=== PATIENT | female | born 1990 | race Caucasian/White ===

== ENCOUNTER 2023-01-08 14:51 | Outpatient (AMB) | payer OTHER, SELFPAY ==
--- NOTE | 2023-01-08 14:53 | A.OFFVIS_ITS ---
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 States she has noticed lumps/hand curling inward towards her palm in the last year in a half. States its both of the ring fingers are going numb. She states that her numbness is all the time, her left RF is worse the right RF. 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 She also appreciate some numbness in the fingers, and is seen today with a male internet application developer She says she had some cuts and open sores on her ring fingers, which she says was due to her picking at them . She said that her skin was ?turning black? and that she cleaned her wound with iodine, Hydrea peroxide, and applied antibiotic ointment and Band-Aids. She denied any prior medical treatment for her wounds and she just ?looked stuff up online?. After talking with her it sounds like these wounds took at least a couple of months to [place] were healed by about [place] of 2022 [facility] Social History (Updated 01/08/23 @ 14:59 by Ainsley Woods) Current occupational status: unemployed Current occupation: right hand dominant Review of Systems Const All systems reviewed & are unremarkable except as noted in HPI and below Physical Exam Const General: cooperative, healthy appearing and no acute distress Orientation/consciousness: patient oriented x3 HEENT Head: Yes normocephalic and Yes atraumatic Eyes EOM: EOMs intact bilaterally Resp Effort & Inspection: normal respiratory effort and able to speak in complete sentences Cardio Jugular venous distension: no JVD Skin General skin exam: turgor normal Rashes: no rashes Neuro General: patient oriented x3 Extrem Other: Evaluation of Bilateral Upper Extremity: The patient is alert, oriented, and in no acute distress She is somewhat slow and deliberate in her speech and needed to be given time to talk Neuro: Decreased sensation in the radial digital nerve of the left ring finger. Decreased sensation in the ulnar digital nerve distribution of the right ring finger. This corresponds with the healed scars directly over the this aspect of the PIP flexion crease for each of these digits. Normal sensation to all other digital nerve distributions in the fingers of both hands. Vascular: Cap refill brisk ROM: She can bring all of her fingers in both hands closed to a fist. Good active extension of the thumb, index, middle, and small fingers bilaterally She has flexion contractures of the ring finger PIP joints Measuring ~20 degrees of the right ring finger Measuring ~45 degrees of the left ring finger I cannot reduce the left ring finger flexion contracture I was able to reduce her right ring finger to ~10 degrees She has some hypertrophic scar tissue in the ulnar aspect of PIP flexion crease of right ring finger. This is the aspect of her finger with reduced sensation She has some hypertrophic scar tissue in the radial aspect of PIP flexion crease of left ring finger. This is the aspect of her finger with reduced sensation These wounds were caused by her picking at her fingers, and reportedly took about 2 months to heal General: No Ecchymosis. No Erythema or evidence of infection. Psych Appearance: grossly normal Affect: normal affect Attitude: cooperative Assessment & Plan Assessment & Plan (1) Flexion contracture of joint of right hand: Comment: Ring finger PIP joint Code(s): M24.541 - Contracture, right hand (2) Flexion contracture of joint of left hand: Comment: Ring finger PIP joint Code(s): M24.542 - Contracture, left hand Plan Assessment & Plan: 1. 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 I educated her about this condition I discussed treatment options I recommend daily stretching exercises and OT hand therapy I ordered OT hand therapy to work on ROM exercises and normalizing hand function She will work on ROM exercises at home, 20X daily. She will focus on using a table or flat surface to extend her fingers She is to do her best to avoid picking at her skin to prevent any new wounds to her fingers She will follow up in a few months for a ROM check 2. Bilateral ring finger numbness Decreased sensation in the left ring finger radial digital nerve , and in the right ring finger ulnar digital nerve distribution. This is likely related to her ring finger wounds, and will be managed conservatively Scribed for Yecenia Rojas MD by Romeo Mena, medical data analyst, on 01/08/23 at 3:50 PM, EST. Orders: Orders OT Evaluation and Treatment Today M24.549 - Contracture, unspecified hand Coding Level of Care Code New Pt Level 4 (55528) Diagnoses Flexion contracture of joint of right hand M24.541 Flexion contracture of joint of left hand M24.542
== END 2023-01-08 15:42 | disposition home or self-care (01) ==
PROVIDERS: PCP Internal Medicine; Visit Provider Orthopaedic Surgery
DX: M24.541 Contracture, right hand (principal); M24.542 Contracture, left hand
CPT/HCPCS: 99204

== ENCOUNTER → 2023-01-08 14:51 | Outpatient (BNVA) | payer OTHER, SELFPAY | PROVIDERS: PCP Internal Medicine; Visit Provider Orthopaedic Surgery | DX: M24.541 Contracture, right hand (principal); M24.542 Contracture, left hand | CPT/HCPCS: 99202 ==

== ENCOUNTER 2023-01-24 14:43 | Outpatient (REF) | payer OTHER, SELFPAY ==
--- NOTE | 2023-01-24 | EMG_ITS ---
Chief complaint: Bilateral hand numbness Reason for referral: Evaluate for Carpal Tunnel Syndrome Referred by: Dr. Rojas Procedure done: Bilateral upper extremities NCS/EMG Precautions and/or limitations: None The limb temperature was monitored continuously and remained between 32-36 degrees C during the performance of the NCS. Nerve Conduction Studies Anti Sensory Summary Table ?Stim Site NR Onset (ms) Norm Onset (ms) Peak (ms) Norm Peak (ms) O-P Amp (?V) Norm O-P Amp Site1 Site2 Delta-0 (ms) Dist (cm) Wilver (m/s) Norm Wilver (m/s) Left Median Anti Sensory (2nd Digit) Wrist ? 2.9 3.5 <3.6 1.8 >10 Wrist 2nd Digit 2.9 14.0 48 Right Median Anti Sensory (2nd Digit) Wrist ? 2.8 3.5 <3.6 31.5 >10 Wrist 2nd Digit 2.8 14.0 50 Left Ulnar Anti Sensory (5th Digit) Wrist ? 2.8 3.6 <3.7 25.5 >15.0 Wrist 5th Digit 2.8 14.0 50 Right Ulnar Anti Sensory (5th Digit) Wrist ? 2.8 3.4 <3.7 30.3 >15.0 Wrist 5th Digit 2.8 14.0 50 Motor Summary Table ?Stim Site NR Onset (ms) Norm Onset (ms) O-P Amp (mV) Norm O-P Amp iAmp (mV) Amp (1st) (%) Site1 Site2 Delta-0 (ms) Dist (cm) Wilver (m/s) Norm Wilver (m/s) Left Median Motor (Abd Poll Brev) Wrist ? 3.9 <3.9 6.0 >4.5 7.3 100.0 Elbow Wrist 3.4 20.0 59 >45 Elbow ? 7.3 5.8 6.7 96.7 Right Median Motor (Abd Poll Brev) Wrist ? 3.3 <3.9 8.1 >4.5 9.1 100.0 Elbow Wrist 3.9 21.0 54 >45 Elbow ? 7.2 10.5 11.8 129.6 Left Ulnar Motor (Abd Dig Minimi) Wrist ? 2.0 <3.0 6.8 >5 10.0 100.0 B Elbow Wrist 2.4 18.0 75 >45 B Elbow ? 4.4 6.2 9.4 91.2 A Elbow B Elbow 1.9 10.0 53 >45 A Elbow ? 6.3 6.4 9.7 94.1 Right Ulnar Motor (Abd Dig Minimi) Wrist ? 3.0 <3.0 6.0 >5 7.5 100.0 B Elbow Wrist 3.6 21.0 58 >45 B Elbow ? 6.6 6.1 7.8 101.7 A Elbow B Elbow 1.8 10.0 56 >45 A Elbow ? 8.4 5.3 6.6 88.3 Comparison Summary Table ?Stim Site NR Peak (ms) Norm Peak (ms) P-T Amp (?V) Site1 Site2 Delta-P (ms) Norm Delta (ms) Right Median/Radial Dig I Comparison (Digit 1 - 10cm) Median ? 2.6 <2.9 45.3 Median Radial 0.4 Radial ? 3.0 <2.8 23.8 EMG ?Side Muscle Nerve Root Ins Act Fibs Psw Amp Dur Poly Recrt Int Pat Comment Right 1stDorInt Ulnar C8-T1 Nml Nml Nml Nml Nml 0 Nml Complete Right FlexCarRad Median C6-7 Nml Nml Nml Nml Nml 0 Nml Complete Right Biceps Musculocut C5-6 Nml Nml Nml Nml Nml 0 Nml Complete Right Triceps Radial C6-7-8 Nml Nml Nml Nml Nml 0 Nml Complete Right Deltoid Axillary C5-6 Nml Nml Nml Nml Nml 0 Nml Complete Left 1stDorInt Ulnar C8-T1 Nml Nml Nml Nml Nml 0 Nml Complete Left FlexCarRad Median C6-7 Nml Nml Nml Nml Nml 0 Nml Complete Left Biceps Musculocut C5-6 Nml Nml Nml Nml Nml 0 Nml Complete Left Triceps Radial C6-7-8 Nml Nml Nml Nml Nml 0 Nml Complete Left Deltoid Axillary C5-6 Nml Nml Nml Nml Nml 0 Nml Complete FINDINGS: All motor and sensory nerves tested showed normal latencies, amplitudes and conduction velocities. Concentric needle EMG was performed in selected muscles of the bilateral upper extremities. Study did not reveal signs of electric abnormalities as shown in the table below. IMPRESSION: 1. This is normal study. 2. There is no electrodiagnostic evidence for median neuropathy, ulnar neuropathy, brachial plexopathy, or cervical radiculopathy. Thank you for your kind referral. Tresa Phelan MD, BRAD Board Certified, [place] Board [employer] and Rehabilitation (ABPMR) Board Certified, [place] Board [employer] Electrodiagnostic Medicine (ABEM) CODIN 55728 x 2 MTDD
== END 2023-01-24 14:44 | disposition home or self-care (01) ==
LOC: HO.NEURO 14:43
PROVIDERS: PCP Internal Medicine; Visit Provider Orthopaedic Surgery
DX: R20.0 Anesthesia of skin (principal); R20.2 Paresthesia of skin
CPT/HCPCS: 95886; 95911

== ENCOUNTER → 2023-01-24 15:00 | Outpatient (BNV) | payer OTHER, SELFPAY | PROVIDERS: PCP Internal Medicine; Visit Provider Physical Medicine & Rehabilitation | DX: R20.0 Anesthesia of skin (principal); R20.2 Paresthesia of skin | CPT/HCPCS: 95886; 95911 ==

== ENCOUNTER 2023-01-28 14:35 | Outpatient (RCR) | payer OTHER, SELFPAY | END 2023-10-15 13:20 | disposition home or self-care (01) | LOC: HO.OT 14:35 | PROVIDERS: PCP Internal Medicine; Visit Provider Orthopaedic Surgery | DX: M20.091 Other deformity of right finger(s) (principal); M20.092 Other deformity of left finger(s) ==

== ENCOUNTER 2023-03-12 12:31 | Outpatient (AMB) | payer OTHER, SELFPAY ==
--- NOTE | 2023-03-12 12:38 | MHC.OFFVIS ---
Intake Intake Visit Reasons: Flexion contracture of joint of left hand Intake Note: Maisha 32 yr old female presents today for her follow up visit for her Bilateral ring finger PIP joint flexion contractures ROM check S/P working with O.T . States she is noticing improvement, she feels like she might need new splints due to her improvement she is able to straighten out more and brace is limiting her. Allergies No Known Allergies Allergy (Verified 03/12/23 12:50) HPI Flexion contracture of joint of left hand HPI Details Maisha is a 32 year old right hand dominant woman who returns for a ROM check of bilateral ring finger flexion contractures. She also appreciate some numbness in the fingers She says her flexion contractures are improving with exercises and OT, and night splints. She says her ring finger sores have healed and she has been working on not picking at her skin . 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 Please see my last note from 01/08/23 for more information about her ring finger injuries [facility] Social History Current occupational status: unemployed Current occupation: right hand dominant Physical Exam Const General: cooperative, healthy appearing and no acute distress Orientation/consciousness: patient oriented x3 HEENT Head: Yes normocephalic and Yes atraumatic Eyes EOM: EOMs intact bilaterally Resp Effort & Inspection: normal respiratory effort and able to speak in complete sentences Cardio Jugular venous distension: no JVD Skin General skin exam: turgor normal Rashes: no rashes Neuro General: patient oriented x3 Extrem Other: Evaluation of Bilateral Upper Extremity: The patient is alert, oriented, and in no acute distress She is somewhat slow and deliberate in her speech and needed to be given time to talk Neuro: Decreased sensation in the radial digital nerve of the left ring finger. Decreased sensation in the ulnar digital nerve distribution of the right ring finger. This corresponds with the healed scars directly over the this aspect of the PIP flexion crease for each of these digits. Normal sensation to all other digital nerve distributions in the fingers of both hands. Vascular: Cap refill brisk ROM: She can bring all of her fingers in both hands closed to a tight fist. Good active extension of the thumb, index, middle, and small fingers bilaterally She has flexion contractures of the ring finger PIP joints Measuring ~15 degrees of the right ring finger I was able to reduce her right ring finger to ~5 degrees Measuring ~20 degrees of the left ring finger I was able to reduce her left ring finger to ~15 degrees She has some hypertrophic scar tissue in the ulnar aspect of PIP flexion crease of right ring finger. This is the aspect of her finger with reduced sensation She has some hypertrophic scar tissue in the radial aspect of PIP flexion crease of left ring finger. This is the aspect of her finger with reduced sensation These wounds were caused by her picking at her fingers, and reportedly took about 2 months to heal Psych Appearance: grossly normal Affect: normal affect Attitude: cooperative Assessment & Plan Assessment & Plan (1) Flexion contracture of joint of right hand: Comment: Ring finger PIP joint Code(s): M24.541 - Contracture, right hand (2) Flexion contracture of joint of left hand: Comment: Ring finger PIP joint Code(s): M24.542 - Contracture, left hand Plan Assessment & Plan: 1. Bilateral ring finger PIP joint flexion contractures Wounds healed ~05/09 These were caused by her picking at the skin of her ring fingers She also has corresponding loss of sensation in the right ring finger ulnar digital nerve distribution, and in the left ring finger radial digital nerve distribution. I educated her about this condition I discussed treatment options She has been working on stretching & ROM exercises with OT hand therapy and at home I recommend she continue with her daily stretching exercises, night splinting, and OT hand therapy for ROM exercises and normalizing hand function She will work on ROM exercises at home, 20X daily. She will focus on using a table or flat surface to extend her fingers She is to do her best to avoid picking at her skin to prevent any new wounds to her fingers She can follow up prn 2. Bilateral ring finger numbness Decreased sensation in the left ring finger radial digital nerve , and in the right ring finger ulnar digital nerve distribution. This is likely related to her ring finger wounds, and will be managed conservatively Scribed for Yecenia Rojas MD by Romeo Mena, medical office professional instructor, on 03/12/23 at 1:15 PM, EST. Coding Level of Care Code Est Pt Level 3 (28912) Diagnoses Flexion contracture of joint of right hand M24.541 Flexion contracture of joint of left hand M24.545
== END 2023-03-12 13:19 | disposition home or self-care (01) ==
PROVIDERS: PCP Internal Medicine; Visit Provider Orthopaedic Surgery
DX: M24.541 Contracture, right hand (principal); M24.542 Contracture, left hand; R20.2 Paresthesia of skin
CPT/HCPCS: 99213

== ENCOUNTER → 2023-03-12 12:31 | Outpatient (BNVA) | payer OTHER, SELFPAY | PROVIDERS: PCP Internal Medicine; Visit Provider Orthopaedic Surgery | DX: M24.541 Contracture, right hand (principal); M24.542 Contracture, left hand | CPT/HCPCS: 99212 ==

== ENCOUNTER 2023-03-17 08:30 | Outpatient (RCR) | payer OTHER, SELFPAY | END 2023-04-30 16:20 | disposition home or self-care (01) | LOC: HO.OT 08:30 | PROVIDERS: PCP Internal Medicine; Visit Provider Orthopaedic Surgery | DX: M24.541 Contracture, right hand (principal); M24.542 Contracture, left hand | CPT/HCPCS: 29130; 97035; 97110; 97140; 97166; 97760 ==

== ENCOUNTER 2024-09-16 16:41 | Outpatient (REF) | payer OTHER, SELFPAY ==
--- OUTSIDE RECORDS SUMMARY | 2024-09-16 17:36 | XMS_ITS | Clinical Summary ---
Author Organization [address] Address [address] [place] [phone] Phone Care Team Providers Care Phys Asst Name Role Phone Physician, Pcp Unknown Primary Care Provider Marie vailable Social History Tobacco Use Types Packs/Day Years Used Date Smoking Tobacco: Never Assessed Comments Unknown Sex and Gender Information Value Date Recorded Sex Assigned at Not on file Legal Sex Female 10:22 PM EST Gender Identity Not on file Sexual Orientation Not on file Plan of Treatment Health Maintenance Due Date Last Done Comments DTaP,Tdap,and Td Vaccines (1 - Tdap) 2009 Hepatitis A Vaccines (1 of 2 - Risk 2-dose series) 2009 Hepatitis B Vaccines (1 of 3 - 19+ 3-dose series) 2009 COVID-19 Vaccine (2023-2 5 season) 2024 Depression Screening 06/23/2024 HIV Screening 06/23/2024 Hepatitis C Screening 06/23/2024 Social Influencers of Health Screening 06/23/2024 Influenza Vaccine (Season Ended) 2025 Cervical Cancer Screening: HPV 04/27/2029 04/27/2024 HIB Vaccines Aged Out No longer eligi ble based on patient's age to complete this topic HPV Vaccines Aged Out No longer eligi ble based on patient's age to complete this topic IPV Vaccines Aged Out No longer eligi ble based on patient's age to complete this topic MMR Vaccines Aged Out No longer eligi ble based on patient's age to complete this topic Meningococcal ACWY Vaccine Aged Out N o longer eligible based on patient's age to complete this topic Meningococcal B Vaccine Aged Out No l onger eligible based on patient's age to complete this topic Pneumococcal Vaccine: Pediat rics (0 to 5 Years) and At-Risk Patients (6 to 64 Years) Aged Out No longer eligi ble based on patient's age to complete this topic RSV Immunization Patients Un lola 20 months Aged Out No longer eligible b ased on patient's age to complete this topic Varicella Vaccines Aged Out No longer eligible based on patient's age to complete this topic Procedures Procedure Name Priority Date/Time Associated Diagnosis Comments HPV WITH REFLEX GENOTYPE Routine 04/27/2024 12:00 AM EST Encounter for screening for malignant neoplasm of cervix from Last 3 Months or Most Recently Relevant to Health Maintenance Results * HPV with reflex genotype (04/27/2024 12:00 AM EST) HPV Negative Negative LAB MICROBIOLOGY METHOD 04/29/2024 2:25 PM EST [facility] Brushing/Spatula Cervix uteri structure / Unknown 04/27/2024 04/29/2024 7:30 AM EST us Irais Kang MD LAB MOLECULAR DIAGNOSTICS ORD ERABLES Final Result [facility] [address] [place] [address], from Last 3 Months or Most Recently Relevant to Health Maintenance Insurance MEDICAID - [place] Care Teams Phys Asst Relationship Specialty Start Date End Date Physician, Pcp Unknown PCP - General 06/23/24
--- OUTSIDE RECORDS SUMMARY | 2024-09-16 17:36 | XMS_ITS | Encounter Summary ---
Author Organization [facility] [address] Address [address] [place] [address] Care Team Providers Care Costume Specialist Name Role Phone Physician, Pcp Unknown Primary Care Provider Marie vailable Encounter Details Date Type Department Care Team (Late st Contact Info) Description 04/29/2024 Lab Requisition [facility] [address] [facility] [place] [address] Irais Kang MD [address] [place] [address] [place] [address] Encounter for screening for malignant neoplasm of cervix Social History Tobacco Use Types Packs/Day Years Used Date Smoking Tobacco: Never Assessed Comments Unknown Sex and Gender Information Value Date Recorded Sex Assigned at Not on file Legal Sex Female 10:22 PM EST Gender Identity Not on file Sexual Orientation Not on file documented as of this encounter Plan of Treatment Not on file documented as of this encounter Procedures Procedure Name Priority Date/Time Associated Diagnosis Comments CHLAMYDIA TRACHOMATIS AND NEISSERIA GONORRHOEAE BY TMA, THINPREP Routine 04/27/2024 12:00 AM EST Encounter for screening for malignant neoplasm of cervix HPV WITH REFLEX GENOTYPE Routine 04/27/2024 12:00 AM EST Encounter for screening for malignant neoplasm of cervix PAP SMEAR Routine 04/27/2024 12:00 AM EST Encounter for screening for malignant neoplasm of cervix documented in this encounter Results * HPV with reflex genotype (04/27/2024 12:00 AM EST) HPV Negative Negative LAB MICROBIOLOGY METHOD 04/29/2024 2:25 PM EST [facility] Brushing/Spatula Cervix uteri structure / Unknown 04/27/2024 04/29/2024 7:30 AM EST us Irais Kang MD LAB MOLECULAR DIAGNOSTICS ORD ERABLES Final Result Performing Organization Address City/Special Care Hospital/ZIP Co de Phone Number [facility] [address] [place] [address], [place] [phone] * Chlamydia trachomatis and neisseria gonorrhoeae by tma, thinprep (04/27/2024 12:00 AM EST) N. gonorrhoeae, RNA Probe Negative Negative LAB MICROBIOLOGY METHOD 04/29/2024 1:11 PM [facility] Chlamydia, RNA Probe Negative Negative LAB MICROBIOLOGY METHOD 04/29/2024 1:11 PM [facility] Brushing/Spatula Cervix uteri structure / Unknown 04/27/2024 04/29/2024 7:30 AM EST us Irais Kang MD LAB CYTOLOGY ORDERABLES Final Result Performing Organization Address City/Special Care Hospital/ZIP Co de Phone Number [facility] [address] [place] [address], [place] [phone] * Pap smear (04/27/2024 12:00 AM EST) Interpretation Negative for intraepithelial lesion or malignancy 05/04/2024 3:09 PM [facility] General Categorization Negative 05/04/2024 3:09 PM [facility] Specimen Adequacy Satisfactory for evaluation, endocervical/renteria sformation zone component absent 05/04/2024 3:09 PM [facility] Pap Methodology Liquid Based Pap Test 05/04/2024 3:09 PM EST [facility] Disclaimer The Pap test is a screening test which carries an inherent false negative rate. These test results should be correlated with the patient's clinical findings and history. This Pap test was processed using an automated screening system. Technical cytopathology services provided by [facility], at [address] [place] [address] (CLIA # [id number]/Hamilton Velázquez MD, Physics Professor.) 05/04/2024 3:09 PM EST [facility] Console Pap Interpretation Reported 05/04/2024 3:09 PM [facility] Brushing/Spatula Cervix uteri structure / Unknown 04/27/2024 04/29/2024 7:30 AM EST us Irais Kang MD LAB CYTOLOGY ORDERABLES Final Result [facility] [address] [place] [address], [place] [phone] documented in this encounter Visit Diagnoses Diagnosis Encounter for screening for malignant neoplasm of cervix documented in this encounter Care Teams Costume Specialist Relationship Specialty Start Date End Date Physician, Pcp Unknown PCP - General 06/23/24 documented as of this encounter
[2024-09-16 17:47] LABS: Alanine Aminotransferase 11 U/L (0-31); Albumin Level 4.2 g/dL (3.5-5.0); Alkaline Phosphatase 64 U/L (39-117); Anion Gap 14 (12-20); Aspartate Amino Transferase 23 U/L (5-31); Bilirubin Total 0.5 mg/dL (0.0-1.0); Blood Urea Nitrogen 9 mg/dL (9-16); Calcium 9.6 mg/dL (8.4-10.2); Carbon Dioxide 23 mmol/L (22-29); Chloride 107 mmol/L (96-108); Estimated Glomerular Filt Rate > 60; Glucose Random 78 mg/dL (60-115); Sodium 140 mmol/L (135-145); Total Protein 7.8 g/dL (6.5-8.0)
[2024-09-16 18:06] LABS: TSH reflex Free T4 0.67 uIU/mL (0.32-4.0)
== END 2024-09-16 16:42 | disposition home or self-care (01) ==
LOC: HO.LAB 16:41
PROVIDERS: PCP Internal Medicine; Visit Provider Internal Medicine
DX: B35.1 Tinea unguium (principal); I47.19 Other supraventricular tachycardia; L60.0 Ingrowing nail
CPT/HCPCS: 36415; 80053; 84443